=== PATIENT | male | born 1995 | race Caucasian/White ===

== ENCOUNTER 2017-09-28 19:49 | Emergency (ER) | payer SELFPAY | END 2017-09-28 20:19 | disposition left against medical advice (07) | LOC: E/R 19:49 | DX: Z53.21 Procedure and treatment not carried out due to patient leaving prior to being seen by health care provider (principal) ==

== ENCOUNTER 2017-09-28 22:14 | Emergency (ER) | payer OTHER ==
[2017-09-28] MEDS: IBUPROFEN 800 MG TAB PO (23:01)
== END 2017-09-29 00:54 | disposition home or self-care (01) ==
LOC: FTE 22:14
DX: M54.5 Low back pain (principal)
CPT/HCPCS: 72040; 72100; 99283-25